=== PATIENT | male | born 1990 | race Caucasian/White ===

== ENCOUNTER 2017-05-22 18:06 | Emergency (ER) | payer SELFPAY ==
[2017-05-22 18:20] VITALS: RESP 18
--- NOTE | 2017-05-22 18:43 | EDPHY ---
H & P Stated Complaint: Auditory hallucinations - Personal History Current Tetanus Diphtheria and Acellular Pertussis (TDAP): Yes - Medical/Surgical History Other PMH: IV meth use - Social History Smoking Status: Current every day smoker Time Seen by Provider: 05/22/17 18:23 HPI/ROS: CHIEF COMPLAINT: "I'm having increasing paranoia" HISTORY OF PRESENT ILLNESS: 26-year-old male in the ER voluntarily requesting assistance with increasing paranoia. States that for the past 1 year the house he has been living in he has been experiencing auditory hallucinations, hearing voices through the window well on seeing riding on the wall. The hallucinations will yell at him. They have been increasing in intensity. They never tell him to hurt himself or to hurt anybody else. Last evening he states that they injected him with methamphetamine and cocaine. States that he last consciously used methamphetamine 1 month ago. He has not had medical or psychiatric evaluation for this. Denies suicidal or homicidal ideation. PRIMARY CARE PROVIDER: REVIEW OF SYSTEMS: A ten point review of systems was performed and is negative with the exception of the items mentioned in the HPI PAST MEDICAL & SURGICAL HISTORY: No pertinent medical or surgical history SOCIAL HISTORY: Last consciously used methamphetamine 1 month ago. PHYSICAL EXAM (Prior to examination, patient consented to physical exam, hands were washed and my usual and customary physical exam procedures followed) 1) GENERAL: poorly kept, appears paranoid . 2) HEAD: Normocephalic, atraumatic 3) HEENT: Pupils equal, round, reactive to light bilaterally. Sclera anicteric. 4) NECK: Full range of motion, no meningeal signs. 5) LUNGS: Clear auscultation bilaterally, no wheezes, no rhonchi, no retractions. 6) HEART: Regular rate and rhythm, no murmur, no heave, no gallop. 7) ABDOMEN: No guarding, no rebound, no focal tenderness, negative McBurney's, negative Love's, negative Rovsing's, negative peritoneal sign, 8) MUSCULOSKELETAL: left bicep abrasion with no signs of infection. Moving all extremities, no focal areas of tenderness, no obvious trauma. No peripheral edema or discoloration. 9) BACK: No CVA tenderness, no midline vertebral tenderness, no fluctuance, no step-off, no obvious trauma, no visual or palpable abnormality. 10) SKIN: No rash, no petechiae. 11) Psychiatric: Patient is oriented X 3, there is no agitation. DIFFERENTIAL DIAGNOSIS: in no particular include but limited to anastasiya, psychosis, depression (Rianna Dawn Cristina) Constitutional: Initial Vital Signs Temperature (C) 37.4 C 05/22/17 18:15 Heart Rate 112 H 05/22/17 18:15 Respiratory Rate 18 05/22/17 18:15 Blood Pressure 143/82 H 05/22/17 18:15 O2 Sat (%) 97 05/22/17 18:15 O2 Delivery Mode Room Air Allergies/Adverse Reactions: No Known Allergies Allergy (Unverified 05/22/17 18:18) Home Medications: Medication Instructions Recorded NK [No Known Home Meds] 05/22/17 Medical Decision Making ED Course/Re-evaluation: 6:43 p.m.: The patient is in the ER voluntarily requesting mental health assistance for his increasing auditory hallucinations. At this point I do not think he presents an imminent danger to himself and/or others and he would like speak with mental health train operator which I think is reasonable at this time. I do not think the patient meets criteria for 72 hour hold at this time. 8:20 p.m.: I re-evaluated the patient at this time he is comp cooperative. He would like to speak with mental health train operator. Informed that the soonest med health train operator could evaluate the patient would be in 12 hours. I do not think he meets criteria for a 72 hour hold. Have offered to have him wait in the emergency department or discharge him and [facility] He prefers to be discharged. States that his family will drive him there. He continues to denies suicidal homicidal ideation. (Rianna Dawn Cristina) Other Provider: PHYSICIAN DOCUMENTATION: The patient was evaluated and managed by the Physician Spreader Box Operator and myself. I have reviewed the chart and agree with the findings and plan of care as documented. In addition, I examined the patient myself at 1950. History confirmed as patient was convinced to come in by a friend who is here with him methamphetamine use, auditory hallucinations. Physical findings as follows: Not in distress, cooperative, on his smartphone, fluent speech. Tox noted positive for amphetamine; this is certainly a likely cause for his symptoms. HR down to 91. I am the secondary supervising physician. (Quinn Mazariegos) - Data Points Laboratory Results: Laboratory Results 05/22/17 18:37 05/22/17 18:37 Departure - Departure Disposition: Home, Routine, Self-Care Clinical Impression: Paranoia Condition: Good Instructions: Methamphetamine Abuse (ED) Additional Instructions: Call 911 if you develop thoughts of hurting herself or others or have any other concerns. Referrals: [facility],. [Clinic] - 05/22/17 9:00 pm
[2017-05-22 19:04] LABS: % IMMATURE GRANULYOCYTES 0.4 % (0.0-1.1); ABSOLUTE IMMATURE GRANULOCYTES 0.05 10^3/uL (0.00-0.10); ADD DIFF? NO; ADD MORPH? NO; ADD SCAN? NO; ATYPICAL LYMPHOCYTE FLAG 10 (0-99); FRAGMENT RBC FLAG 0 (0-99); HEMATOCRIT 44.8 % (40.0-51.0); LEFT SHIFT FLG 0 (0-99); LIPEMIA HEMOLYSIS FLAG 80 (0-99); MEAN CELL HEMOGLOBIN CONCENTR. 33.5 g/dL (32.4-36.7); MEAN CELL VOLUME 89.6 fL (81.5-99.8); MEAN PLATELET VOLUME 10.5 fL (8.7-11.7); PLATELET CLUMPS FLAG 0 (0-99); PLATELET COUNT 302 10^3/uL (150-400); RED CELL DISTRIBUTION WIDTH 14.6 % (11.5-15.2)
[2017-05-22 19:07] LABS: ANION GAP 16 mEq/L (8-16); CALCIUM 10.2 mg/dL (8.5-10.4); CARBON DIOXIDE 23 mEq/l (22-31); CHLORIDE 103 mEq/L (97-110); CREATININE 0.8 mg/dL (0.7-1.3); ETHANOL SERUM < 10 mg/dL (0-10); GLOMERULAR FILTRATION RATE > 60; GLUCOSE 87 mg/dL (70-100); POTASSIUM 4.1 mEq/L (3.5-5.2); SALICYLATE < 1.0 mg/dL (2.0-20.0); SODIUM 142 mEq/L (134-144)
[2017-05-22 20:32] VITALS: BP 132/78; PULSE 91; TEMP 98.8; O2SAT 98
== END 2017-05-22 20:30 | disposition home or self-care (01) ==
DX: F22 Delusional disorders (principal); F17.200 Nicotine dependence, unspecified, uncomplicated
CPT/HCPCS: 80305; G0480

== ENCOUNTER 2017-05-25 11:40 | Emergency (ER) | payer SELFPAY ==
[2017-05-25 11:51] VITALS: TEMP 98.6
--- NOTE | 2017-05-25 12:52 | EDPHY ---
H & P Smoking Status: Current every day smoker Time Seen by Provider: 05/25/17 12:11 HPI/ROS: CHIEF COMPLAINT: Paranoid, hearing voices HISTORY OF PRESENT ILLNESS: 26-year-old male presents to the emergency department feeling paranoid hearing voices. He has a history of IV methamphetamine abuse. His last use was 3 or 4 days ago. He has had suicidal thoughts but does not currently have these now. If he denies homicidal thoughts. No fevers or chills. The patient was in the emergency department and evaluated by mental health few days ago and discharged. Denies chest pain or difficulty breathing. Denies abdominal pain. No vomiting. No diarrhea. REVIEW OF SYSTEMS: Constitutional: No fever, no chills. Eyes: No double or blurry vision. ENT: No sore throat. Respiratory: No cough, no shortness of breath. Cardiac: No chest pain. Gastrointestinal: No abdominal pain, vomiting or diarrhea. Genitourinary: No dysuria. Musculoskeletal: No neck or back pain. Skin: No rashes. Neurological: No headache. (Mckenzie Harrington) Past Medical/Surgical History: Substance abuse (Mckenzie Harrington) Social History: Single and lives in [place] (Mckenzie Harrington) Physical Exam: General Appearance: Alert, no distress. Eyes: Pupils equal and round. Extraocular motions are all intact. ENT: Mouth: Mucous membranes moist. Respiratory: No wheezing, rhonchi, or rales, lungs are clear to auscultation. Cardiovascular: Regular rate and rhythm. Gastrointestinal: Abdomen is soft and nontender, no masses, no rebound or guarding, bowel sounds normal. Neurological: Alert and oriented x 3, cranial nerves II through XII grossly intact Skin: Warm and dry, no rashes. Musculoskeletal: Nontender to palpate along the cervical, thoracic or lumbar spine. Neck is supple. Extremities: Full range of motion and no peripheral edema. Psychiatric: Patient is oriented X 3, there is no agitation. (Mckenzie Harrington) Constitutional: Initial Vital Signs Temperature (C) 37.0 C 05/25/17 11:49 Heart Rate 88 05/25/17 11:49 Respiratory Rate 16 05/25/17 11:49 Blood Pressure 127/74 H 05/25/17 11:49 O2 Sat (%) 98 05/25/17 11:49 O2 Delivery Mode Room Air Allergies/Adverse Reactions: No Known Allergies Allergy (Unverified 05/22/17 18:18) Home Medications: Medication Instructions Recorded OLANZapine [Zyprexa Zydis] 10 mg PO DAILY #7 tab.rapdis 05/25/17 Medical Decision Making ED Course/Re-evaluation: Patient was medically cleared and was evaluated by mental health. He is not suicidal or homicidal. He feels comfortable being discharged. He will be discharged with Zyprexa as itis for his auditory hallucinations and was encouraged to go directly to [facility] office for intake. (Mckenzie Harrington) I did not see this patient while he was in the emergency department. However his care was discussed with the PA while the patient was in the department. I agree with treatment plan and management (Mary Roe) Differential Diagnosis: Depression including functional and major depression, situational depression, medication side effect, drugs and alcohol abuse. (Mckenzie Harrington) - Data Points Laboratory Results: Laboratory Results 05/25/17 12:51 05/25/17 12:51 Medications Given: Discontinued Medications Lorazepam (Ativan) 1 mg PO EDNOW ONE Stop: 05/25/17 15:25 Last Admin: 05/25/17 15:32 Dose: 1 mg Departure - Departure Disposition: Home, Routine, Self-Care Clinical Impression: Substance abuse, Drug-induced psychotic disorder Condition: Good Instructions: Methamphetamine Abuse (ED), Polysubstance Abuse (ED) Additional Instructions: Go to directly [facility]. Zyprexa may help with the auditory hallucinations that you are experiencing. Return to the emergency department if you develop suicidal ideation or any other concerns. Referrals: MARY CAMPUZANO [Primary Care Provider] - As per Instructions [facility],. [Clinic] - As per Instructions Prescriptions: OLANZapine [Zyprexa Zydis] 10 mg PO DAILY #7 tab.rapdis
[2017-05-25 13:02] LABS: % IMMATURE GRANULYOCYTES 0.3 % (0.0-1.1); ABSOLUTE IMMATURE GRANULOCYTES 0.02 10^3/uL (0.00-0.10); ADD DIFF? NO; ADD MORPH? NO; ADD SCAN? NO; ATYPICAL LYMPHOCYTE FLAG 20 (0-99); FRAGMENT RBC FLAG 0 (0-99); HEMATOCRIT 44.5 % (40.0-51.0); HEMOGLOBIN 14.7 g/dL (13.7-17.5); LEFT SHIFT FLG 0 (0-99); LIPEMIA HEMOLYSIS FLAG 80 (0-99); MEAN CELL HEMOGLOBIN 30.2 pg (27.9-34.1); MEAN CELL VOLUME 91.6 fL (81.5-99.8); MEAN PLATELET VOLUME 10.3 fL (8.7-11.7); PLATELET CLUMPS FLAG 0 (0-99); PLATELET COUNT 275 10^3/uL (150-400); RED BLOOD CELL COUNT 4.86 10^6/uL (4.40-6.38); RED CELL DISTRIBUTION WIDTH 14.1 % (11.5-15.2)
[2017-05-25 13:19] LABS: ANION GAP 12 mEq/L (8-16); CALCIUM 9.5 mg/dL (8.5-10.4); CARBON DIOXIDE 25 mEq/l (22-31); CHLORIDE 104 mEq/L (97-110); CREATININE 0.8 mg/dL (0.7-1.3); ETHANOL SERUM < 10 mg/dL (0-10); GLOMERULAR FILTRATION RATE > 60; GLUCOSE 80 mg/dL (70-100); POTASSIUM 4.6 mEq/L (3.5-5.2); SODIUM 141 mEq/L (134-144)
[2017-05-25] MEDS ORDERED: LORazepam 1 MG TAB PO ONE (15:24)
[2017-05-25 17:19] VITALS: BP 118/69; PULSE 75; RESP 14; O2SAT 95
== END 2017-05-25 17:19 | disposition home or self-care (01) ==
DX: F19.10 Other psychoactive substance abuse, uncomplicated (principal); F23 Brief psychotic disorder; F17.200 Nicotine dependence, unspecified, uncomplicated
CPT/HCPCS: 80305; G0480